=== PATIENT | female | born 1935 | race Caucasian/White ===

== ENCOUNTER 2016-08-19 09:03 | Outpatient (CLI) | payer MEDICARE, OTHER | END 2016-08-19 09:04 | disposition home or self-care (01) | DX: E78.2 Mixed hyperlipidemia (principal); E55.9 Vitamin D deficiency, unspecified; Z79.899 Other long term (current) drug therapy; M81.0 Age-related osteoporosis without current pathological fracture; J44.9 Chronic obstructive pulmonary disease, unspecified ==

== ENCOUNTER 2017-09-24 22:18 | Outpatient (CLI) | payer MEDICARE, OTHER ==
--- NOTE | 2017-09-24 22:29 | CONSULTATION NOTE ---
Palliative Care Follow Up - Referral Referring Provider: Dr Rao Time of Visit: 09/24/2017. 14:25 - 15:55 Referral setting: Home (Seen in home setting due to taxing and considerable effort required to leave the home due to breathlessness secondary to advanced COPD.) Referral Reason: Advanced/end-stage COPD - Information Sources Records reviewed: Previous records reviewed History/Review of Systems obtained from: Patient, Friend, Nursing Exam limitations: Clinical condition (Short term memory deficit. [place].) - History of Present Illness Update Brief HPI Update: FACE to FACE for oxygen therapy: Due to shortness of air as a result of advanced/end-stage COPD, patient will require home oxygen therapy to achieve healthy saturation levels. The patient's most recent pulse oximetry study, taken while patient was awake and at rest, measured at 97% on 3L oxygen via nasal canula. As a result of poor oxygen saturation, patient will require home oxygen therapy. Oxygen therapy was trialed at 3L/minute, resulting in optimal saturation levels of 97% while under provider supervision. All other treatments have been tried and proven ineffective. Thank you, Dr. Rao, for asking the palliative care consult service to be involved in the care of your patient. I am asked to provide support for your patient who was recently discharged from the Hospice service, and to monitor her transition back to Hospice when appropriate. This is a pleasant 82-year-old woman with end-stage COPD who was recently discharged from Hospice after she improved and no longer met criteria to remain on the Hospice service. She had been admitted to Hospice in May 2016. She is now returning to the palliative care service for support and monitoring. Patient is on continuous oxygen, and apart from her chronic SOA with any exertion, she currently has a low symptom burden. She was admitted to Hospice for COPD and malnutrition, going from 89 lbs to 83 lbs. Today she has stabilized and weighs 85 lbs. She reports that she has always been small. Present at today's visit are her two close friends and DPOAs, Candi and Mally , and another close friend, Fabi Harris, whom the patient had not intended to have her present. The patient is quite limber and flexible, getting up from her chair with no difficulty. She has a stiff gait, but moves quickly and surely. She walked around her kitchen counter, and after sitting down, was visibly winded and breathing with effort. She was on oxygen the entire time, and for the entire visit. After sitting a moment her oxygen saturation was 97% and pulse 83. Pulse reduced to 76 after rest. Candi and Mally are very involved in her care, and they have engaged a young man who is a family friend. He moved in last week and will spend the nights there to monitor and provide support when needed. See Palliative Care discussion for more information. Candi Notes that this was a very good day for the patient, in terms of alertness and cognition. She was more alert and less confused than she has been. They have noted a steady decline in cognition and memory, but say the patient has not been formally diagnosed with dementia. The patient has LifeLine and wears it. When I asked her about it, she immediately pulled it out to show me. It is Candi and Mally who are notified. Social History - Living Situation Living arrangement: At home Living Situation: With caregiver(s) Support System: Candi Martinez is her primary financial DPOA and secondary medical DPOA. Mally Shannan is her primary medical DPOA, and secondary financial DPOA. They are closely involved in her care and support. One is a social work working with [employer] , the other is a hairdresser. Mary (spelling?) is her caregiver here 4 hours x 5 days a week. , with [facility], and MWKarin as private care, which is confidential. Isael, a 22 year old family friend, moved in last week and will support her at night. He works in [employer] during the days, but is available in the mornings. The patient mostly sleeps in the afternoons, and at night as well, so the health care legal assistant schedule works well with her sleep patterns. The patient is , with no children. She has two sisters, two nieces, and two nephews. One nephew, August, is someone she does not like or trust. Medications/Allergies - Medications Home Medications: Ambulatory Orders Medication Instructions Recorded Confirmed Fluticasone/Salmeterol 250/50 1 puffs INH BID 02/15/16 09/25/17 [Advair 250 Mcg/50 Mcg] Tiotropium [place] [Spiriva] 1 puffs INH DAILY 02/15/16 09/25/17 Cholecalciferol [Vitamin D3] 10,000 unit PO DAILY 09/25/17 09/25/17 Escitalopram Oxalate 5 mg PO DAILY 09/25/17 09/25/17 LORazepam [Lorazepam] 0.5 tab PO Q6H PRN 09/25/17 09/25/17 predniSONE [Prednisone] 10 mg PO DAILY 09/25/17 09/25/17 - Allergies Allergies/Adverse Reactions: Allergies Allergy/AdvReac Type Severity Reaction Status Date / Time belladonna alkaloids Allergy Hallucinati Verified 02/15/16 14:31 ons Review of Systems - Constitutional Constitutional: reports: Weight stable (Around 85 lbs. At admission to Hospice , she had dropped from 89 lbs to 83 lbs.). denies: Poor appetite - Ears, Nose & Throat Ears, Nose & Throat: reports: Hearing loss - Cardiovascular Cardiovascular: reports: Exertional dyspnea, Decr. exercise tolerance - Respiratory Respiratory: reports: SOB with exertion. denies: Wheezing, SOB at rest - Gastrointestinal Gastrointestinal: denies: Constipation, Nausea, Vomiting, Poor appetite - Genitourinary Genitourinary: reports: Incontinence (occasional stress incontinence). denies: Dysuria, Frequency, Urgency - Musculoskeletal Musculoskeletal: reports: Assistive devices (walker). denies: Muscle pain, Back pain, Muscle weakness, Transfer issues (indepdently able to transfer herself from sit to stand) - Neurological Neurological: reports: Abnormal gait (careful, stiff, small steps, but moves quickly) - Psychiatric Psychiatric: reports: Anxiety (about meaning of life, doing something useful with her life) Physical Exam - Vital Signs Temperature: 96.2 F Pulse Rate: 76 (83 after exertion) O2 Saturation: 97 (after exertion on 3L/min O2) Blood Pressure: 171/81 (elevated, not on BP meds.) - Physical Exam General Appearance: positive: No acute distress, Alert Eyes Bilateral: positive: EOMI, No lid inflammation, Conjunctivae nml, No scleral icterus ENT: positive: No signs of dehydration Neck: positive: No JVD, Trachea midline Cardiovascular: positive: Irregular Abdomen: positive: Non-tender, Soft, Abnml bowel sounds (hypoactive) Skin: positive: Dryness Extremities: positive: Nml appearance, No pedal edema Neurologic/Psychiatric: positive: Mood/affect nml, Disoriented to time Palliative Care - POLST Patient has POLST: Yes POLST Status: DNR, Comfort Measures (Reviewed POLST signed 05/2016, no changes, re-signed it.) Pain: No pain Tiredness/Fatigue: Moderate (4-6) Drowsiness/Sedation: None Nausea: None Depression: Mild (1-3) Anxiety: Mild (1-3) Dyspnea: Moderate (4-6) (with exertion, on O2) Anorexia: Mild (1-3), Weight loss (Weight around 85 lbs) Sleep: Variable sleep pattern (Sleeps in the afternoons, from 1pm - 6pm. Then goes to sleep at night from about 11pm to 4am, then is mostly awake in the mornings) Constipation: No, Comment (was on Senna but no longer uses it) Feelings of wellbeing/Perceived Quality of Life: Fair Performance Status: On continuous O2 2-3L/minute. Self-transfers, ambulatory with 4WW. Does not like having a bath aid help her in the shower. Has been housebound since May 2016 (admission to Hospice) because of anxiety of dying outside the home. Palliative care performance scale: 50% - Palliative Care Discussion: We reviewed and re-signed the POLST form, originally signed 06/16/2016. There were no changes. they keep the original copy in the kitchen. The patient's main goal is to remain in her home, and it is extremely important to her to in her home. Candi informs me that when she was admitted to Hospice, she took the prognosis to heart and thought she would " in 6 months." So she never left the house because she was terrified of dying away from home. Her upcoming appointment on October [address] Rao will be her first time out of the house since being admitted to Hospice, according to Candi. The plan is to then have another appointment or errand outside of the house and slowly get her out more. She does have a travel O2 condenser. The patient's cognitive ability is limited, with marked short-term memory loss, so Candi and Mally explain everything to her and then have her sign her any forms, etc. They also have a spiral notebook started by Ayden in Hospice, and they track everything there. They request the Palliative Care FRYER OPERATOR to sign this book at each visit, since they may not necessarily be there. The patient's close friend, Fabi, was present today. It was explained to me that Fabi hadn't been invited but somehow knew about the visit. The patient prefers that Fabi not be present for healthcare visits or be involved in her medical affairs; however, the patient wasn't comfortable asking her to leave, and so Fabi remained for the first portion of the visit. This situation was explained to me only after she left. I will gently and appropriately ask her to leave if she happens to be present at my future visits. It was also explained to me that the patient doesn't like her nephew August Schrader : "He thinks he's getting everything when I ." He is reported as being aggressive and has a gun. The patient is sad about this because she adores August 's daughter, who is two. The patient has 2 nieces (Alyson, Yenny) and 2 nephews ( August, Stanislav) from her two sisters. She has no children of her own. The caregiving situation seems well organized. Mary (sp) comes 4 hours in the mornings M-F. The patient is up in the mornings, but sleeps in the afternoons until about 6pm. Isael, a young family friend who just started living in the house, is there in the evenings/nights and also in the mornings before Isabela arrives. He works in [employer]. Candi and Mally are there often and quite closely involved in her care and affairs. They had installed a hidden baby monitor in the house, and learned that the patient gets up often in the night and does various activities which she didn't remember in the morning. It motivated them to engage caregiving help during the night. The patient expressed sadness and regret that she is not "doing anything" with her life, and feels she doesn't have a purpose. She gets angry and frustrated at the things she cannot do because of her disease. She also expresses anger at herself for having smoked. She says, "I have no one to blame but myself." We discussed this and I provide supportive listening and normalization. She complains that she hates bathing, in particular having someone bathe her. She did not enjoy the twice weekly baths with the Hospice aid. So Candi and Mally have worked out a compromise of having her bath once a week. (She takes a shower and has a shower bench.) We discussed doing a trial of having her bathe herself, while the caregiver is there in the house, so someone is present while she's in the shower. She reports that she is able to wash herself. She liked the idea of bathing herself, and not having someone else do it: "It's embarrassing." Impression and Recommendations - Palliative Care Impression: This is a felipe 82-year-old woman with advanced/end-stage COPD who was recently referred back to palliative care after being on hospice since May 2016. She has a low symptom burden apart from her chronic SOA. She also has two very competent and involved DPOA's, who have arranged an efficient, workable caregiving routine so that the patient has appropriate support to help her remain in her home, which is her goal. She would benefit from ongoing palliative care monitoring and support, with eventual transition back to hospice when appropriate. Recommendations/Counseling Done: Dyspnea secondary to COPD: Stable on 2-3L/min O2, Spiriva and Advair. Conducted a [id number] for oxygen therapy and wrote the order for [employer] [facility]. Continue Spiriva and Advair daily. Memory deficits: Marked short-term memory loss. She has not been diagnosed with dementia; conduct MMSE at follow up visit. Major depression without behavior disturbance: Stable on citalopram. She also have lorazapam as needed, but does not use it. Advanced care planning: POLST from May 2016 was reviewed and re-signed, with no changes (RODRIGUE, Comfort care). Goal is to remain in her home, and at home. DPOAs have arranged a workable and efficient caregiver schedule, with paid caregiving and live-in support from a close family friend, and close oversight by both DPOAs. Their plan is to slowly have her start leaving the house, where she has remained since first entering Hospice in May 2016. Her first trip out of the house will be her appointment with Dr Rao on October 12. Be sure to sign/record my assessment in the spiral notebook at each visit. Next visit scheduled for October 15 11:30. Time Spent: 90 minutes were spent with more than 50% of the time spent on counseling, education, and coordination of care.
== END 2017-09-24 22:19 | disposition home or self-care (01) ==
LOC: PC 22:18
PROVIDERS: ATTEND Nurse Practitioner
DX: Z51.5 Encounter for palliative care (principal); R06.00 Dyspnea, unspecified; J44.9 Chronic obstructive pulmonary disease, unspecified; F32.9 Major depressive disorder, single episode, unspecified; R41.89 Other symptoms and signs involving cognitive functions and awareness; F41.9 Anxiety disorder, unspecified; Z87.891 Personal history of nicotine dependence; Z66 Do not resuscitate
CPT/HCPCS: 99350

== ENCOUNTER 2017-10-12 11:23 | Outpatient (CLI) | payer MEDICARE, OTHER ==
[2017-10-12 18:05] LABS: BASOPHILS # (AUTO) 0.1 10^3/uL (0.0-0.1); BASOPHILS % (AUTO) 0.7 %; EOSINOPHILS # (AUTO) 0.1 10^3/uL (0.0-0.7); EOSINOPHILS % (AUTO) 0.6 %; LYMPHOCYTES # (AUTO) 0.8 10^3/uL (1.5-3.5); LYMPHOCYTES % (AUTO) 6.7 %; MEAN CORPUSCULAR HEMOGLOBIN 27.8 pg (27.0-31.0); MEAN CORPUSCULAR HGB CONC 32.1 g/dL (32.0-36.0); MEAN CORPUSCULAR VOLUME 86.6 fL (81.0-99.0); MEAN PLATELET VOLUME 8.7 fL (7.9-10.8); MONOCYTES # (AUTO) 0.4 10^3/uL (0.0-1.0); MONOCYTES % (AUTO) 3.4 %; NEUTROPHILS # (AUTO) 10.8 10^3/uL (1.5-6.6); NEUTROPHILS % (AUTO) 88.6 %; PLT - PLATELET COUNT 289 10^3/uL (130-450); RED BLOOD COUNT 4.66 10^6/uL (4.20-5.40); RED CELL DISTRIBUTION WIDTH 14.4 % (12.0-15.0); WHITE BLOOD COUNT 12.2 x10^3/uL (4.8-10.8)
[2017-10-12 18:17] LABS: ALBUMIN 3.8 g/dL (3.2-5.5); ALBUMIN/GLOBULIN RATIO 1.7 (1.0-2.2); ALKALINE PHOSPHATASE 53 IU/L (42-121); ALT ALANINE AMINOTRANSFERASE < 10 IU/L (10-60); AST ASPARTATE AMINOTRANSFERASE 16 IU/L (10-42); BILIRUBIN,TOTAL 0.6 mg/dL (0.2-1.0); BUN - BLOOD UREA NITROGEN 23 mg/dL (6-20); CALCIUM 9.2 mg/dL (8.5-10.3); CARBON DIOXIDE - CO2 39 mmol/L (21-32); CHLORIDE 95 mmol/L (101-111); CREATININE 0.7 mg/dL (0.4-1.0); GFR - MDRD 80 (>89); GLUCOSE 150 mg/dL (70-100); SODIUM 141 mmol/L (135-145)
== END 2017-10-12 11:24 ==
LOC: LAB.R 11:23
PROVIDERS: ATTEND Internal Medicine
DX: J44.9 Chronic obstructive pulmonary disease, unspecified (principal); Z79.899 Other long term (current) drug therapy
CPT/HCPCS: 80053; 84443; 85025

== ENCOUNTER 2017-10-15 18:26 | Outpatient (CLI) | payer MEDICARE, OTHER ==
--- NOTE | 2017-10-15 18:43 | CONSULTATION NOTE ---
Palliative Care Follow Up - Referral Referring Provider: Dr Rao Time of Visit: 10/15/2017. 11:00 - 12:00 Referral setting: Home (Seen in home setting due to taxing and considerable effort required to leave the home due to severe breathlessness secondary to advanced COPD.) Referral Reason: End stage COPD - Information Sources Records reviewed: Previous records reviewed History/Review of Systems obtained from: Patient, Friend, Caregiver Exam limitations: Clinical condition (short term memory deficit. [place].) - History of Present Illness Update Brief HPI Update: [id number] for oxygen Due to shortness of air as a result of advanced/end-stage COPD, patient will require home oxygen therapy to achieve a healthy saturation level. The patient' s most recent pulse oximetry study, taken while patient was awake and at rest, measured 90% after 5 minutes without oxygen at rest, then 72% without oxygen after 5 minutes exertion; then 95% with 2.5L oxygen after recovery and at rest. As a result of poor oxygen saturation, patient will require home oxygen therapy. Oxygen therapy was trialed at 2.5 L/min resulting in optimal saturation levels of 95% while under provider supervision. All other treatments have been tried and proven ineffective. -This is a pleasant 82-year-old woman with end-stage COPD who was recently discharged from hospice in August 2017 after she improved and no longer met criteria. She is back with the palliative care service for support and monitoring. -She was admitted to hospice in May 2016 for COPD and malnutrition. -She remains stable, COPD is at baseline. -Her complaint is the nubs of nasal cannula come out of her nostrils, especially when sleeping as she sleeps on her side. I followed up with [facility], they do not have cannulas with longer nubs. Educated her on maintaining and checking the cannula positioning throughout the day. -She still remains housebound. Caregivers want to rehabituate her to being outside the home by taking her on medical appointments. -Patient exhibits "owners" symptoms, according to DPOA. -Had a PCP visit on Thursday. He increased O2 to 2.5L and DC'd lorazepam. -Appetite is ok, her weight has remained stable: 85.32 lbs at PCP clinic. -Conducted MMSE cognition test, score (24) was borderline abnormal. -She does obviously have short-term memory deficits with repetitive questions and lack of recall of subjects just discussed. Social History - Living Situation Living arrangement: At home Living Situation: Alone, With caregiver(s) Support System: Candi Martinez is her primary financial DPOA and secondary medical DPOA. Mally Campbell is her primary medical DPOA, and secondary financial DPOA. Both are closely involved in her care and support. Mally is a social media analyst, Candi is a hairdresser. Mary, caregiver, works 4 hours (from about 9am) 5 days a week. Isael, 22yo family friend, linves in the house and is there at night. So caregiver coverage occurrs in the morning, and during the night. In the afternoons the patient sleeps, and no caregivers are there. Patient is , no children. Family includes 2 sisters, 2 nieces, 2 nephews , one of whom, August, she does not trust. Medications/Allergies - Medications Home Medications: Ambulatory Orders Medication Instructions Recorded Confirmed Fluticasone/Salmeterol 250/50 1 puffs INH BID 02/15/16 10/15/17 [Advair 250 Mcg/50 Mcg] Tiotropium [place] [Spiriva] 1 puffs INH DAILY 02/15/16 10/15/17 Cholecalciferol [Vitamin D3] 10,000 unit PO DAILY 09/25/17 10/15/17 Escitalopram Oxalate 5 mg PO DAILY 09/25/17 10/15/17 predniSONE [Prednisone] 10 mg PO DAILY 09/25/17 10/15/17 - Allergies Allergies/Adverse Reactions: Allergies Allergy/AdvReac Type Severity Reaction Status Date / Time belladonna alkaloids Allergy Hallucinati Verified 02/15/16 14:31 ons Review of Systems - Constitutional Constitutional: reports: Weight loss (85.32 lbs 10/12/17 at PCP clinic. When admitted to Hospice she had dropped from 89 lbs to 83 lbs.). denies: Poor appetite - Ears, Nose & Throat Ears, Nose & Throat: reports: Hearing loss - Cardiovascular Cardiovascular: reports: Exertional dyspnea, Decr. exercise tolerance. denies: Chest pain - Gastrointestinal Gastrointestinal: denies: Constipation (patient reports almost daily bowel movements; DPOA has reported when she becomes constipated she stops eating until she has a bowel moveent.), Nausea, Vomiting, Poor appetite - Genitourinary Genitourinary: reports: Incontinence (stress). denies: Dysuria, Frequency, Urgency - Musculoskeletal Musculoskeletal: reports: Assistive devices (walker). denies: Muscle pain, Back pain, Muscle weakness, Transfer issues - Neurological Neurological: denies: Abnormal gait (careful, stiff, small steps, moves quickly when on oxygen) Physical Exam - Vital Signs Temperature: 96.8 F Pulse Rate: 93 O2 Saturation: 95 (2.5L) Blood Pressure: 168/76 - Physical Exam General Appearance: positive: No acute distress, Alert Eyes Bilateral: positive: EOMI, No lid inflammation, Conjunctivae nml, No scleral icterus ENT: positive: No signs of dehydration Neck: positive: No JVD, Trachea midline Cardiovascular: positive: Regular rate & rhythm Respiratory: positive: Chest non-tender, No respiratory distress, Diminished throughout. negative: Rales Skin: positive: Dryness Extremities: positive: Nml appearance, No pedal edema Neurologic/Psychiatric: positive: Oriented x3, Mood/affect nml Palliative Care Pain: No pain Anxiety: Mild (1-3) Dyspnea: Moderate (4-6) Anorexia: Moderate (4-6) Sleep: Variable sleep pattern Constipation: Comment (Denies but DPOA suspects she gets constipated) - Palliative Care Discussion: -Mally COOPER reiterated that I should schedule visits through her or co-DPOA Candi. -Mally, or Candi, will try to be at all visits. Late morning works better for her. -Mally will also create a folder and leave it on the patient's dining table to leave me messages and information. -She notes continued slow cognitive decline and memory deficits. The DPOAs have organized things to make it as effective as possible for the patient to keep track of things and feel some control and autonomy with her life. Impression and Recommendations - Palliative Care Impression: This is a felipe 82-year-old woman with advanced/end-stage COPD recently back with the palliative care service after having been on hospice over a year. She has a low symptom burden apart from her chronic SOA. She remains almost totally housebound and will benefit from ongoing palliative care monitoring and support and eventual transition back to hospice when indicated. Recommendations/Counseling Done: Dyspnea secnodary to COPD: On oxygen 2.5L via cannula 19/01. She was unhappy about how the cannula fit her; followed up with [employer], but they do not have an alternative design. Gave her suggestions for making sure the cannula is seated properly throughout the day. See HPI for [id number] information for oxygen. Continue Spiriva and prednisone daily and Advair BID. Constipation: Patient denies it, DPOA less certain. patient is on no bowel medications; but she is also not on opioids. Monitor. Weight loss: patient claims she is eating more, and the caregiver confirms she cooks for her and the patient is eating fairly well. Weight stabilized around 85 lbs. She had dropped from 89 to 83 lbs at the time she was transferred to hospice. Advanced care planning: Goal continues to be comfort care and remaining at home. POLST is in place and displayed on refrigerator. Lorazepam was DC'd by PCP. Left voicemail for Mally about scheduling next visit. Time Spent: 60 minutes were spent with more than 50% of the time spent on counseling, education, and coordination of care.
== END 2017-10-15 18:27 | disposition home or self-care (01) ==
LOC: PC 18:26
PROVIDERS: ATTEND Nurse Practitioner
DX: Z51.5 Encounter for palliative care (principal); R06.00 Dyspnea, unspecified; J44.9 Chronic obstructive pulmonary disease, unspecified; Z99.81 Dependence on supplemental oxygen; R41.3 Other amnesia; Z79.52 Long term (current) use of systemic steroids; Z66 Do not resuscitate
CPT/HCPCS: 99350

== ENCOUNTER 2017-11-25 19:45 | Outpatient (CLI) | payer MEDICARE, OTHER ==
--- NOTE | 2017-11-25 21:07 | CONSULTATION NOTE ---
Palliative Care Follow Up - Referral Referring Provider: Dr Rao Time of Visit: 11/25/2017. 12:00 - 12:45 Referral setting: Home (Seen in home setting due to taxing and considerable effort required to leave the home due to severe breathlessness secondary to advanced COPD.) Referral Reason: Increased memory deficits - Information Sources Records reviewed: Previous records reviewed History/Review of Systems obtained from: Patient, Friend Exam limitations: Clinical condition (significant short term memory deficits. JAMUL.) - History of Present Illness Update Brief HPI Update: -This is a pleasant 82-year-old woman with end-stage COPD who was discharge from hospice back in August 2017, after she improved and no longer met criteria. -She is back with the palliative care service team for support and monitoring. -Her original admission to hospice was in May 2016 for COPD and malnutrition. -Her SOB and COPD remain stable, at baseline. -Of note is increased short-term memory deficits and confusion, forgetting what she has been told in relation to her care or her business affairs and finances, which are directed by her DPOA friends. -This causes difficulty for the DPOA's when the patient tells family members she is not being told what is going on, when in fact she has been briefed on it regularly by her DPOA's. -Darrell has been on vacation for 2 weeks but is now back. -Extensive discussion and education on dementia and memory loss, I provided anticipatory guidance, talked about dementia and changes in mentation to be expected. -The DPOA/friends appear very organized and dedicated to working with the patient and protecting her interests. -Their concern is that the memory issues are making it more difficult for them to to manage her affairs, and they also feel on the defensive with patient's family members. -Patient reports good appetite, however she sleeps a lot, and then skips meals. But when she is awake she does say she has a good appetite and eats well. -Her caregiver, Natalia, who is normally there 5 days a week, was gone for the past week or two due to family illness and as a result, the patient was eating less regularly than usual. -Now that Natalia and also the DPOA's are back from vacation hopefully her routine will settle back down. -The DPOA tells me and reminds the patient that Dr. Rao told her she must get out once a week, and eventually the patient said she will do this. Social History - Living Situation Living arrangement: At home Living Situation: Alone, With caregiver(s) Support System: -Candi Martinez hairdresser, is primary financial DPOA, and secondary medical DPOA. -Mally Campbell, social staff worker, is primary medical DPOA, and secondary financial DPOA. -Both are closely involved in her care and support. Natalia, caregiver, works in the mornings 5 days/week. Isael, 22yo family friend lives in the house and is there most nights. Patient is , no children. Family includes 2 sisters, 2 nieces, 2 nephews , one of whom, August, she does not trust. Medications/Allergies - Medications Home Medications: Ambulatory Orders Medication Instructions Recorded Confirmed Fluticasone/Salmeterol 250/50 1 puffs INH BID 02/15/16 11/25/17 [Advair 250 Mcg/50 Mcg] Tiotropium [place] [Spiriva] 1 puffs INH DAILY 02/15/16 11/25/17 Cholecalciferol [Vitamin D3] 10,000 unit PO .TWICE WEEKLY 09/25/17 11/25/17 Escitalopram Oxalate 5 mg PO DAILY 09/25/17 11/25/17 predniSONE [Prednisone] 10 mg PO DAILY 09/25/17 11/25/17 - Allergies Allergies/Adverse Reactions: Allergies Allergy/AdvReac Type Severity Reaction Status Date / Time belladonna alkaloids Allergy Hallucinati Verified 02/15/16 14:31 ons Review of Systems - Constitutional Constitutional: reports: Weight loss (84 lbs 11/25/17. 85.32 lbs 10/12/17 at PCP office. Was 83 lbs in Hospice; from 89 lbs.) - Ears, Nose & Throat Ears, Nose & Throat: reports: Hearing loss, Other (Nubs of nasal cannula annoy her and pop out frequently.) - Cardiovascular Cardiovascular: reports: Exertional dyspnea, Decr. exercise tolerance. denies: Palpitations, Chest pain, Edema - Respiratory Respiratory: reports: SOB with exertion. denies: Cough, SOB at rest - Gastrointestinal Gastrointestinal: denies: Constipation, Poor appetite - Genitourinary Genitourinary: denies: Dysuria, Incontinence - Musculoskeletal Musculoskeletal: denies: Muscle pain, Back pain, Assistive devices (walker), Transfer issues - Neurological Neurological: reports: Abnormal gait (careful, stiff, small steps, but walks quickly) - Psychiatric Psychiatric: reports: Anxiety Physical Exam - Vital Signs Temperature: 96.6 F Pulse Rate: 74 O2 Saturation: 95 Blood Pressure: 168/75 - Physical Exam General Appearance: positive: No acute distress, Alert Eyes Bilateral: positive: EOMI, No lid inflammation, Conjunctivae nml, No scleral icterus ENT: positive: No signs of dehydration Neck: positive: No JVD, Trachea midline Cardiovascular: positive: Regular rate & rhythm, No murmur, No gallop Respiratory: positive: Chest non-tender, No respiratory distress, Diminished throughout Skin: positive: Dryness Extremities: positive: Non-tender, No pedal edema Neurologic/Psychiatric: positive: Mood/affect nml, Disoriented to time Palliative Care - POLST Patient has POLST: Yes POLST Status: DNR, Comfort Measures Pain: No pain Tiredness/Fatigue: Moderate (4-6) Drowsiness/Sedation: Moderate (4-6) Nausea: None Anxiety: Mild (1-3) Dyspnea: Moderate (4-6) (with exertion) Sleep: Other (Sleeps a lot) Constipation: No (Denied by patient; DPOAs believe she does get constipated) - Palliative Care Discussion: Most pressing symptom is increase in memory deficits. This causes anxiety for patient; she feels excluded and no longer in control of her affairs or finances. DPOAs feel stress and pressure from family because patient doesn't remember information she has been told by DPOAs. Also patient misplaces, loses important items ("puts them away" and can't recall where), or does not remember giving them away. There were several different examples of forgeting people she has met with, updates the DPOAs had provided her that she doesn't recall, important papers misplaced. I made some suggestions to work around and with the memory loss; patient doesn' t like suggestions or ideas that she feels will give her less control over her own affairs. She is struggling with accepting her memory and cognitive losses while still being cognitively intact enough to have some self-awareness of her deficits. DPOAs welcome suggestions and input to improve this situation. We extensively discussed this. Patient seemed agreeable to some of the suggestions ; it is doubtful how much she can successfully recall or follow. DPELSA notified me that patient has two properties, and the second one (that she is not living in) is going into foreclosure since she doesn't have the finances to maintain it. Patient has not been leaving the house, though doesn't dispute that Dr Rao advised her she should. She self-reports as "difficult," and says she doesn't like feeling like a "performing seal" and that she just doesn't feel like going through all the effort to leave the house: "For what?" Through the course of our conversation, however, she did state that she will go out once a week. KENNETH Bal says she will take her out for various activities on Sundays. Impression and Recommendations - Palliative Care Impression: This is a felipe 82-year-old woman with advanced end-stage COPD who is back with the palliative care service after having been discharged from hospice in August 2017. Her chronic SOA is stable on continual 2.5L oxygen. Her cognition and memory are declining, causing issues for her DPOAs in managing her affairs. Palliative care will continue to monitor and refer her back to hospice when appropriate. Recommendations/Counseling Done: Dyspnea related to end-stage COPD: Stable, continue 2.5L continual oxygen and spiriva and prednisone daily. Increased memory deficits, unspecified dementia: Consult with PCP, Dr Rao, whether he thinks namenda or donepezil would be beneficial. House is safe, DPOAs are protective, can monitor patient with camera, organize her caregiver, housemate, and their own visits so she has adequate coverage and meals prepared and ready (by the caregiver). Weight loss: Patient continues to report having a good appetite, and her weight is remaining stable, around 84-85 lbs. She sleeps excessively and misses meals. Her caregiver and DPOA Mally are returning to their normal schedules, so hopefully her meal schedule will get back to normal. Advanced care planning: Comfort care and quality of life. Patient expresses intent to leave the house at least once a week, following Dr Rao's suggestion. Next visit: 12/24 at 12:00. Call Mally to reconfir Time Spent: 45 minutes were spent with more than 50% of the time spent on counseling, education, and coordination of care.
== END 2017-11-25 19:46 | disposition home or self-care (01) ==
LOC: PC 19:45
PROVIDERS: ATTEND Nurse Practitioner
DX: Z51.5 Encounter for palliative care (principal); R06.00 Dyspnea, unspecified; J44.9 Chronic obstructive pulmonary disease, unspecified; R63.4 Abnormal weight loss; F41.9 Anxiety disorder, unspecified; Z99.81 Dependence on supplemental oxygen; Z79.52 Long term (current) use of systemic steroids; Z66 Do not resuscitate
CPT/HCPCS: 99349

== ENCOUNTER 2017-12-24 17:54 | Outpatient (CLI) | payer MEDICARE, OTHER ==
--- NOTE | 2017-12-24 18:42 | CONSULTATION NOTE ---
Palliative Care Follow Up - Referral Referring Provider: Dr Nishant Rao Time of Visit: 12/24/2017. 11:50 - 12:50 Referral setting: Home (Seen in home setting due to taxing and considerable effort required to leave the home due to severe breathlessness secondary to advanced COPD.) Referral Reason: Functional decline, weight loss, end-stage COPD - Information Sources Records reviewed: Previous records reviewed History/Review of Systems obtained from: Patient, Friend, Caregiver Exam limitations: Clinical condition (advancing dementia; cognitive decline) - History of Present Illness Update Brief HPI Update: -Frail, malnourished 82-year-old female with end-stage COPD. -She was previously in hospice for an extended period from May 2016 to August 2017, when she was discharged after her condition improved and she no longer met hospice criteria. -Since that time she has been monitored and supported by the palliative care service. -She has had a steady and significant functional and cognitive decline particularly over the past month. -Her cognitive deficits and confusion are increasing, she is unable to focus or complete thoughts, or track conversations, or perform daily activities (eg, taking her pills). -Patient's impulsiveness has increased (eg, today she tore apart her room taking everything out of closets and dressers). -She has increased her sleeping hours, sleeping throughout the day. Two days ago she lay down at 1pm and slept until 8am the next day (yesterday). -She does not leave the house as had been recommended by her PCP. -Appetite and eating are significantly impaired. -Weight today 77 lbs on home scale. 85 lbs at PCP clinic 10/12/17. She was 83 lbs in Hospice, from 89 lbs previously. -She continues on 19/01 oxygen [place] 2.5L. Social History - Living Situation Living arrangement: At home Living Situation: Alone, With caregiver(s) Support System: Natalia, caregiver, works mornings 5 days/week. Collin, 22yo family friend lives in the house, sleeps there at night. Candi Martinez haridresser, is primary financial DPOA, secondary medical DPOA. [phone] mobile. [phone] work. Mally Campbell, psychiatric social worker, is primary medical DPOA, secondary financial DPOA, [phone] mobile. [phone] work. Both are closely involved with patient's care and support. Patient is , without children. Her family includes 2 sisters, 2 nieces, 2 nephews. Medications/Allergies - Medications Home Medications: Ambulatory Orders Medication Instructions Recorded Confirmed Fluticasone/Salmeterol 250/50 1 puffs INH BID 02/15/16 12/24/17 [Advair 250 Mcg/50 Mcg] Tiotropium [place] [Spiriva] 1 puffs INH DAILY 02/15/16 12/24/17 Cholecalciferol [Vitamin D3] 10,000 unit PO .TWICE WEEKLY 09/25/17 12/24/17 Escitalopram Oxalate 5 mg PO DAILY 09/25/17 12/24/17 predniSONE [Prednisone] 10 mg PO DAILY 09/25/17 12/24/17 Morphine Sulfate [Morphine Sulf 0.25 ml PO Q3H PRN 12/24/17 12/24/17 Oral (Roxanol)] - Allergies Allergies/Adverse Reactions: Allergies Allergy/AdvReac Type Severity Reaction Status Date / Time belladonna alkaloids Allergy Hallucinati Verified 02/15/16 14:31 ons Review of Systems - Constitutional Constitutional: reports: Fatigue, Weakness, Poor appetite, Weight loss (77 lbs today on home scale. 85 lbs at PCP clinic 10/12/17. She was 83 lbs in Hospice, from 89 lbs previously.) - Ears, Nose & Throat Ears, Nose & Throat: reports: Hearing loss, Other (difficulties keeping cannula nubs in her nostrils) - Cardiovascular Cardiovascular: reports: Exertional dyspnea, Decr. exercise tolerance. denies: Edema - Respiratory Respiratory: reports: SOB with exertion (any exertion -- talking, small movements, etc). denies: Cough, SOB at rest - Gastrointestinal Gastrointestinal: reports: Poor appetite. denies: Constipation, Nausea - Genitourinary Genitourinary: denies: Dysuria, Incontinence - Musculoskeletal Musculoskeletal: reports: Stiffness, Assistive devices (ambulatory with walker) . denies: Transfer issues - Integumentary Integumentary: reports: Other (Large bruise L wrist due to pressure of wristwatch (she sleeps with L hand tucked under her head, which presses down on the watch and her wrist.) - Neurological Neurological: reports: General weakness, Memory problems, Abnormal gait (short, jerky, stiff gait, but walks quickly), Other (word salad; difficulty tracking conversations, significant short-term memory deficit) - Psychiatric Psychiatric: reports: Anxiety - Hematologic/Lymphatic Hematologic/Lymphatic: reports: Bruising Physical Exam - Vital Signs Temperature: 96.2 F Pulse Rate: 71 O2 Saturation: 97 (2.5 L O2) Blood Pressure: 154/66 - Physical Exam General Appearance: positive: No acute distress, Alert, Anxious Eyes Bilateral: positive: No lid inflammation, Conjunctivae nml, No scleral icterus ENT: positive: Dry mucous membranes Neck: positive: Trachea midline Cardiovascular: positive: Regular rate & rhythm, No murmur Respiratory: positive: No respiratory distress, Diminished throughout ( significantly) Skin: positive: Dryness, Bruising Extremities: positive: No pedal edema Neurologic/Psychiatric: positive: Mood/affect nml, Disoriented to time Palliative Care - POLST Patient has POLST: Yes POLST Status: DNR, Comfort Measures Pain: No pain Tiredness/Fatigue: Severe (7-10) Drowsiness/Sedation: None Nausea: None Anxiety: Mild (1-3) Dyspnea: Moderate (4-6) (with exertion) Anorexia: Severe (7-10) Sleep: Other (Sleeps excessively) Performance Status: Still ambulatory. Significant cognitive and short term memory decline. - Palliative Care Discussion: I spoke at length with patient about her body getting weaker, appetite is shutting down, her significant weight loss, fatigues and weakness. I told her I recommended she go back into hospice, for support and the level of care she needs. I asked if she was in agreement to that. She is, it's something she has been expecting. "It's part of life." She did ask how long she has, but actually was not able to complete the question because of her difficulty in speaking in complete sentences. I gave her my estimate of weeks to months, and stressed the "estimate" part, acknowledging that it's a guess and we are not able to predict with any certainty. We spoke for some time. I asked her how she is feeling, and she said it's her way to worry about it once she's by herself. Mally believes she will not remember most of what has been said. I reckon she will remember "weeks to months" -- because during her Hospice period, she remembered and singled out the "6 month prognosis" part of hospice, and thought she would literally at 6 months, making her afraid to leave the house. She still doesn't leave the house, but says it's because she's just not interested in going out and doing things. She did, however, say she walked outside her house yesterday, and enjoyed the beautiful day. Having adequate and sufficient caregiver coverage is an issue because the patient's finances are stretched right now. Currently the patient is alone in her house for hours at a time; Natalia is there 5 mornings a week, and Isael sleeps in the house at night. I did recommend to Mally that they will need to be increasing the caregiving coverage. [facility] has a "sit in" volunteer program that offers volunteers, who can provide companionship on an overnight basis. Impression and Recommendations - Palliative Care Impression: A frail and malnourished 82-year-old woman has advanced end-stage COPD on 24- hour oxygen. Her condition has been declining with increased confusion, cognitive decline and significant weight loss secondary to anorexia, down to 77 pounds. She was discharged from hospice back in August, but now she again meets criteria for Hospice, and would benefit from transition into Hospice for appropriate support and care. Recommendations/Counseling Done: End stage COPD: Continues with Oxygen, 2.5L 19/01. Has increasing difficulty taking her medications, and is no longer able to use inhaled medications properly, even with assistance and help from caregiver. SOB with any exertion, including speaking. Wrote a script for morphine in case of respiratory crisis, educated and demonstrated to Natalia how to administer buccally. She has experience administering morphine. Morphine sulfate 20mg/mL. Give 0.25mL (5mg) Q3hr prn for SOB, agitation, pain. Dementia: Significantly advancing, increased confusion and inability to focus or complete her thoughts and sentences. Impulsiveness increasing. Protein caloric malnutrition: Significant anorexia. Currently 77 lbs on home scale. Was 83 lbs in Hospice, and had previously been 89 lbs. Weighed 85 lbs at PCP clinic in September. Advanced care planning: Patient's goals of care are comfort-focused. She meets Hospice critiera and I recommend she transition back to Hospice service; patient has verbally agreed with this plan, so has Mally, medical DPOA. Consulted with Dr Rao to write the order. Recommend patient transition to Hospice. Time Spent: 60 minutes were spent with more than 50% of the time spent on counseling, education, anticipatory guidance, and coordination of care.
== END 2017-12-24 17:55 | disposition home or self-care (01) ==
LOC: PC 17:54
PROVIDERS: ATTEND Nurse Practitioner
DX: Z51.5 Encounter for palliative care (principal); J44.9 Chronic obstructive pulmonary disease, unspecified; F03.90 Unspecified dementia, unspecified severity, without behavioral disturbance, psychotic disturbance, mood disturbance, and anxiety; Z99.81 Dependence on supplemental oxygen; R63.4 Abnormal weight loss; M62.81 Muscle weakness (generalized); F41.9 Anxiety disorder, unspecified; R63.0 Anorexia; Z66 Do not resuscitate
CPT/HCPCS: 99350